=== PATIENT | female | born 1985 | race Caucasian/White ===

== ENCOUNTER 2022-05-07 21:17 | Emergency (ER) | payer OTHER ==
[~2022-05-07] VITALS: Ht 157.5 cm; Wt 56.7 kg
[2022-05-07 22:01] VITALS: BP 112/72
--- NOTE | 2022-05-07 22:05 | NUR ---
TO LOBBY A/W BED AMBULATORY
--- NOTE | 2022-05-07 22:53 | NUR ---
PT TAKEN TO BED 3
--- NOTE | 2022-05-07 23:00 | NUR ---
RECEIVED IN BED 3 WITH C/O VAG BLEEDING FOR 2 WEEKS,
[2022-05-07 23:12] LABS: BASOPHILS % (AUTO) 0.7 % (0.0-2.0); EOSINOPHILS # (AUTO) 0.3 K/uL (0-0.4); EOSINOPHILS % (AUTO) 4.3 % (0.0-4.0); HEMATOCRIT 32.8 % (36-48); HEMOGLOBIN 10.3 g/dL (12.0-16.0); LYMPHOCYTES # (AUTO) 1.1 K/uL (2.5-16.5); LYMPHOCYTES % (AUTO) 17.2 % (20.5-51.1); MEAN CORPUSCULAR HEMOGLOBIN 23 pg (27-31); MEAN CORPUSCULAR HGB CONC 31 g/dL (33-37); MEAN CORPUSCULAR VOLUME 74.3 fL (80-94); MONOCYTES # (AUTO) 0.7 K/uL (0.8-1.0); MONOCYTES % (AUTO) 10.6 % (1.7-9.3); NEUTROPHILS # (AUTO) 4.2 K/uL (1.8-7.7); NEUTROPHILS % (AUTO) 67.2 % (42.2-75.2); PLATELET COUNT (AUTO) 207 K/uL (140-450); RED BLOOD CELL COUNT(AUTO) 4.41 MIL/uL (4.20-5.40); WHITE BLOOD COUNT (AUTO) 6.3 K/uL (4.8-10.8)
[2022-05-07 23:19] LABS: ANION GAP 12.9 (8-16); CARBON DIOXIDE 28.2 mmol/L (21-32); CREATININE 0.9 mg/dL (0.6-1.3); POTASSIUM 4.1 mmol/L (3.5-5.1); TOTAL BILIRUBIN 0.2 mg/dL (0.0-1.0)
[2022-05-08 00:04] LABS: APPEARANCE,URINE CLOUDY (CLEAR); BILIRUBIN,URINE NEGATIVE (NEGATIVE); BLOOD, URINE 3+ (NEGATIVE); COLOR,URINE YELLOW (YELLOW); LEUKOCYTE ESTERASE ,URINE TRACE (NEGATIVE); NITRITE, URINE NEGATIVE (NEGATIVE); UGLUCOSE NEGATIVE (NEGATIVE)
[2022-05-08] MEDS ORDERED: NAPR-54 PO (00:04)
[2022-05-08] MEDS ORDERED: MEDR10TA PO (00:04)
[2022-05-08 00:22] LABS: RBC,URINE 20-50 /HPF (0-5); YEAST,URINE None Seen /HPF (None Seen)
[2022-05-08 00:40] VITALS: BP 112/72
--- NOTE | 2022-05-08 00:40 | NUR ---
Patient discharged with v/s stable. Written and verbal after care instructions given and explained. Patient alert, oriented and verbalized understanding of instructions. Ambulatory with steady gait. All questions addressed prior to discharge. ID band removed. Patient advised to follow up with PMD. Rx of PROVERA, AND NAPROSYN given. Patient educated on indication of medication including possible reaction and side effects. Opportunity to ask questions provided and answered.
[2022-05-08] MEDS ORDERED: CEPH-588 PO (00:43)
== END 2022-05-08 00:40 | disposition home or self-care (01) ==
LOC: MED 21:17
DX: N93.8 Other specified abnormal uterine and vaginal bleeding (principal); N39.0 Urinary tract infection, site not specified; Z79.899 Other long term (current) drug therapy
CPT/HCPCS: 36415; 80053; 81001; 81025; 85025; 87086; 96372; 99283; J1050

== ENCOUNTER 2022-05-17 19:15 | Emergency (ER) | payer OTHER ==
[~2022-05-17] VITALS: Ht 157.5 cm; Wt 53.5 kg
[~2022-05-17 19:15] MED LIST: CEPH-588 PO; MEDR10TA PO; NAPR-54 PO
[2022-05-17 19:43] VITALS: BP 123/73
--- NOTE | 2022-05-17 20:06 | NUR ---
pt lwbs at this time
== END 2022-05-17 19:38 | disposition home or self-care (01) ==
LOC: MED 19:15
DX: N93.9 Abnormal uterine and vaginal bleeding, unspecified (principal); Z53.21 Procedure and treatment not carried out due to patient leaving prior to being seen by health care provider